=== PATIENT | male | born 1990 | race Two or more races ===

== ENCOUNTER 2021-12-07 11:35 | Emergency (ER) | payer MEDICAID, SELFPAY ==
[2021-12-07 12:21] VITALS: BP 125/87; PULSE 57; RESP 16; TEMP 36.6; O2SAT 97; BMI 29.0
--- NOTE | 2021-12-07 13:08 | ED.SKABFB ---
HPI - Skin/Abscess/Foreign Bdy General Chief complaint: Skin/Abscess/Foreign Body Stated complaint: lump on face Time Seen by Provider: 12/07/21 12:29 Source: patient Mode of arrival: ambulatory Limitations: no limitations History of Present Illness HPI narrative: 31-year-old male presents to the ER for evaluation of a lump on his right cheek for the last 11 years. He reports it has slowly been getting bigger and more bothersome. A friend told him yesterday if he let it go for too long he could get a brain infection and become blind in his right eye. Patient has not tried to drain or pop the lump. He denies any redness, tenderness or drainage. MD complaint: lesion Onset (ago): year(s) Location: face Severity: mild Severity scale (1-10): 3 Quality: aching Pain Consistency: intermittent Relieving factors: none Exacerbating factors: none Context: none Associated symptoms: denies other symptoms Treatments prior to arrival: none Related Data Allergies Allergy/AdvReac Type Severity Reaction Status Date / Time No Known Allergies Allergy Unverified 01/13/20 18:41 Review of Systems Review of Systems: Constitutional: No Fever, No Chills ENT/Mouth: No Swallowing Difficulty Eyes: No Eye Pain, No Swelling, No Redness Cardiovascular: No Chest Pain, No SOB Gastrointestinal: No Nausea, No Vomiting Skin: + Skin Lesions, No rash Psych: + Anxiety/Panic, No Depression Heme/Lymph: No Bruising, No Lymphadenopathy PMFSH Social History Social History Advance Directives: No Advance Directives Information Provided: No Physical Exam Vital Signs: Vital Signs: Last Vital Signs Temp 97.8 F 12/07/21 12:21 Pulse 57 12/07/21 12:21 Resp 16 12/07/21 12:21 BP 125/87 12/07/21 12:21 Pulse Ox 97 12/07/21 12:21 O2 Del Method 12/07/21 12:21 BMI result Body Mass Index 29.0 Appearance: Alert. Oriented X3. No acute distress. HEENT: On the right cheek there is a heel 1 cm mobile soft tissue mass with no overlying erythema, warmth, drainage. No fluctuance. CVS: Normal heart rate and rhythm. Pulses normal. No cervical lymphadenopathy Respiratory: No respiratory distress. Skin: Skin warm and dry. Normal skin color. Normal skin turgor. No rashes. Extremities: normal inspection and ROM x4 Neuro: Oriented X 3. Grossly normal, nonfocal Course Course Course Narrative: 31-year-old male presents to the ER for evaluation of a lump on his right cheek that has been there for the last 11 years, it has slowly been growing and becoming more bothersome to him. Examination is consistent with a non infected, uncomplicated cyst that is not need to be emergently drained or incised today. He should have evaluation by a wireless engineer for excision. This was discussed with the patient who agrees with plan. He is stable for discharge home, will give referral for Dermatology in [place]. He will follow-up with his PCP at the clinic as well. Critical Care Time Critical Care Time Critical Care Time: No Discharge Plan Discharge Clinical Impression: Epidermal cyst of face Patient Disposition: Home, Self-Care Instructions: Epidermal Inclusion Cysts (ED) Additional Instructions: Recommend referral to a wireless engineer for excision and removal of your cyst. Do not attempt to drain or pop the CIS, this can cause complications such as infection or increase in size. If you develop new or worsening symptoms call 911 or come back to the ER for further evaluation. Referrals: Cynthia Wood PA-C [Physician [facility]] - Discharge Date/Time: 12/07/21 13:20
== END 2021-12-07 13:20 | disposition home or self-care (01) ==
PROVIDERS: Emergency Provider Student in an Organized Health Care Education/Training Program
DX: L72.8 Other follicular cysts of the skin and subcutaneous tissue (principal)
CPT/HCPCS: 99283

== ENCOUNTER 2022-05-27 13:41 | Emergency (ER) | payer MEDICAID, SELFPAY ==
--- NOTE | 2022-05-27 13:55 | ED.SKABFB ---
HPI - Skin/Abscess/Foreign Bdy General Chief complaint: Skin/Abscess/Foreign Body Stated complaint: cyst on face Related Data Allergies Allergy/AdvReac Type Severity Reaction Status Date / Time No Known Allergies Allergy Unverified 05/27/22 13:55 [facility] Social History Social History Advance Directives: No Advance Directives Information Provided: No Physical Exam Vital Signs: Vital Signs: Last Vital Signs Temp 98.1 F 05/27/22 14:26 Pulse 79 05/27/22 14:26 Resp 16 05/27/22 14:26 BP 154/79 H 05/27/22 14:26 Pulse Ox 94 05/27/22 14:26 O2 Del Method 05/27/22 14:26 BMI result Body Mass Index 25.7 Course Course Course Narrative: This is rapid medical exam. deferred additional HPI, ROS, PE to primary provider. 32 yo male healthy here with right facial swelling with lump for years. [facility] and they referred him to a general surgeon but they have not received this. VSS. Discharge Plan Discharge Clinical Impression: Cellulitis, Abscess of skin or subcutaneous tissue Patient Disposition: Elopement Interventions: ED Discharge Assessment Last Done: 05/27/22 21:10 Discharge Date/Time: 05/27/22 21:26
[2022-05-27 13:56] VITALS: BP 154/79; PULSE 79; RESP 16; TEMP 36.7; O2SAT 94
[2022-05-27 14:26] VITALS: BP 154/79; PULSE 79; RESP 16; TEMP 36.7; O2SAT 94; BMI 25.7
== END 2022-05-27 21:26 | disposition left against medical advice (07) ==
PROVIDERS: Emergency Provider Student in an Organized Health Care Education/Training Program
DX: L72.9 Follicular cyst of the skin and subcutaneous tissue, unspecified (principal)
CPT/HCPCS: 99281; 99282

== ENCOUNTER 2024-09-05 04:40 | Emergency (ER) | payer MEDICAID, SELFPAY ==
--- NOTE | ~2024-09-05 | CT_ITS ---
CLINICAL HISTORY: abd pain CT abdomen and pelvis with contrast Comparison: None Findings: No consolidation or effusion. There are multiple bilateral nonobstructing renal calculi. There is no evidence of obstructive uropathy. The kidneys are otherwise unremarkable. The gallbladder in the rest of the solid organs are normal. No bowel obstruction, pneumoperitoneum, or pneumatosis. Pelvic contents unremarkable. Normal appendix. No acute fracture. IMPRESSION: Nephrolithiasis without obstructive uropathy. This document has been electronically signed by: Juan Jurado MD on 09/05/2024 10:16:06
[2024-09-05 04:43] VITALS: BP 120/81; PULSE 89; RESP 16; TEMP 36.9; O2SAT 98; BMI 30.1
[2024-09-05 05:08] LABS: MANUAL DIFF FLAG NO
[2024-09-05 05:10] LABS: Basophils Percent Auto 0.4 % (0-2); Eosinophils Absolute Auto 0.3 X10*3/uL (0.0-0.4); Eosinophils Percent Auto 2.7 % (0-4); Hematocrit 46.7 % (42.0-52.0); Imm Gran Abs Auto 0.05 X10*3/uL (0.00-0.03); Imm Gran Pct Auto 0.5 % (0.0-0.4); Lymphocytes Absolute Auto 2.1 X10*3/uL (1.2-4.9); Lymphocytes Percent Auto 19.6 % (20-40); Mean Corpuscular HGB Conc 36.4 g/dl (31.0-36.0); Mean Corpuscular Hemoglobin 30.2 pg (27.0-33.0); Mean Corpuscular Volume 83.1 fL (80.0-98.0); Mean Platelet Volume 10.1 fL (9.4-12.4); Monocytes Absolute Auto 0.7 X10*3/uL (0.1-1.2); Monocytes Percent Auto 6.9 % (2-11); Neutrophils Absolute Auto 7.6 x10*3/uL (2.0-8.3); Neutrophils Percent Auto 69.9 % (45-73); Platelet Count 250 X10*3/uL (160-400); Red Blood Count 5.62 X10*6/uL (4.60-5.80); Red Cell Distribution Width 12.7 % (11.0-16.0); White Blood Count 10.8 X10*3/uL (4.8-10.8)
[2024-09-05 05:26] LABS: Alanine Aminotransferase 43 U/L (0-40); Alkaline Phosphatase 75 U/L (39-117); Anion Gap 14 (12-20); Aspartate Amino Transferase 28 U/L (5-37); Bilirubin Total 0.4 mg/dL (0.0-1.0); Blood Urea Nitrogen 10 mg/dL (9-16); Calcium 9.1 mg/dL (8.4-10.2); Carbon Dioxide 26 mmol/L (22-29); Chloride 106 mmol/L (96-108); Creatinine Clr Calc Pharmacy 108.9; Estimated Glomerular Filt Rate > 60; Glucose Random 89 mg/dL (60-115); Lipase 19 U/L (8-78); Sodium 142 mmol/L (135-145)
--- OUTSIDE RECORDS SUMMARY | 2024-09-05 05:31 | XMS_ITS | Clinical Summary ---
Author Organization [facility] Address [address] [place] [id number] Care Team Providers Care Primary Care Md Name Role Phone Pcp, No Primary Care Provider Unavailabl e Allergies No known active allergies Medications guaiFENesin-dext romethorphan 100-10 mg/5 mL syrup Take 10 mL by mouth every 4 (four) hours as needed (cough). 120 mL 05/16/2024 Active acetaminophen (TYLENOL) 500 MG tablet Take 1 tablet (500 mg total) by mouth 4 times daily (every 6 hours) as needed for mild pain (pain). 20 tablet 05/16/2024 Active ibuprofen (MOTRIN) 600 MG tablet Take 1 tablet (600 mg total) by mouth 3 (three) times a day as needed for mild pain (pain). 20 tablet 05/16/2024 Active Social History Tobacco Use Types Packs/Day Years Used Date Smoking Tobacco: Never Assessed Sex and Gender Information Value Date Recorded Sex Assigned at Male 05/12/2024 6:48 PM EST Legal Sex Male 6:37 PM EST Gender Identity Male 05/12/2024 6:48 PM EST Sexual Orientation Choose not to disclose 2024 6:48 PM EST Last Filed Vital Signs Vital Sign Reading Time Taken Comments Blood Pressure 128/94 05/16/2024 9:06 AM EST Pulse 98 05/16/2024 9:06 AM EST Temperature 37 ??C (98.6 ??F) 05/16/2024 9:06 AM EST Respiratory Rate 18 05/16/2024 9:06 AM EST Oxygen Saturation 96% 05/16/2024 9:06 AM EST Inhaled Oxygen Concentration - - Weight - - Height - - Body Mass Index - - Plan of Treatment Health Maintenance Due Date Last Done Comments Hepatitis C Virus Screening 1991 HIV Screening 2004 DTaP/Tdap/Td Vaccines (1 - Tdap) 2010 Hepatitis B Vaccines (1 of 3 - 19+ 3-dose series) 2010 COVID-19 Vaccine ( - 2023-2 5 season) 2023 Influenza Vaccine 11/26/2024 HPV Vaccines Aged Out No longer eligi ble based on patient's age to complete this topic Pneumococcal Vaccine: Pediat gautam (0-5 Years) and At-Risk Patients (6 to 49 Years) Aged Out No longer eligible b ased on patient's age to complete this topic Insurance Care Teams Primary Care Md Relationship Specialty Start Date End Date Pcp, No PCP - General General Medicine 05/12/24
--- OUTSIDE RECORDS SUMMARY | 2024-09-05 05:31 | XMS_ITS | Encounter Summary ---
Author Organization [facility] Address [address] [place] [address] [address] [place] [address] Care Team Providers Care Executive Meeting Manager Name Role Phone Unavailable Primary Care Provider Unavailabl e Reason for Visit * Reason Onset Date Comments Appointment 06/28/2022 Encounter Details Date Type Department Care Team (Late st Contact Info) Description 06/28/2022 Telephone [facility] [address] [place] [address] Lucas Tadeo DMD [address] [place] [address] Appointment Social History Tobacco Use Types Packs/Day Years Used Date Smoking Tobacco: Former Cigarettes Smokeless Tobacco: Never Sex and Gender Information Value Date Recorded Sex Assigned at Male 02/25/2022 10:20 AM EDT Legal Sex Male 10:20 AM EDT Gender Identity Choose not to disclose 10:20 AM EDT Sexual Orientation Choose not to disclose 2021 10:20 AM EDT COVID-19 Exposure Response Date Recorded In the last 10 days, have yo u been in contact with someone who was confirmed or suspected to have Coronavirus/COVID-19? No / Unsure 06/12/2022 8:06 AM EST documented as of this encounter Miscellaneous Notes * Telephone Encounter - Odalys Gaxiola - 06/28/2022 2:47 PM EST Patient missed appt with Oral Surgeon and wants to reschedule DR documented in this encounter Plan of Treatment Not on file documented as of this encounter Visit Diagnoses Not on filedocumented in this encounter
[2024-09-05 05:47] LABS: Influenza A PCR NEGATIVE (Negative); Influenza B PCR NEGATIVE (Negative); Resp Syncy Virus RNA Qual PCR NEGATIVE (Negative); SARS COV2 PCR INHOUSE NEGATIVE (Negative)
[2024-09-05 06:40] VITALS: BP 111/71; PULSE 76; RESP 16; TEMP 36.9; O2SAT 95
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
[2024-09-05] MEDS: ondansetron HCL 4 MG/2 ML VIAL IVPUSH (07:53)
[2024-09-05] MEDS: 0.9 % Sodium Chloride 500 ML 999 ML IV (07:53)
[2024-09-05] MEDS: HYDROmorphone HCl 0.5 MG/0.5 ML SYRINGE IVPUSH (07:54)
[2024-09-05] MEDS: iohexoL 350 MG/ML 100 ML INFUS..BTL IV (09:15)
[2024-09-05 11:03] VITALS: BP 98/64; PULSE 72; RESP 18; TEMP 36.4; O2SAT 96
== END 2024-09-05 11:04 | disposition home or self-care (01) ==
PROVIDERS: Emergency Provider Emergency Medicine Emergency Medical Services
DX: K29.70 Gastritis, unspecified, without bleeding (principal); M79.10 Myalgia, unspecified site; M54.2 Cervicalgia; Z03.818 Encounter for observation for suspected exposure to other biological agents ruled out
CPT/HCPCS: 0241U; 74177; 80053; 83690; 85025; 96374; 96375; 99284; 99285; J1171; J2405; Q9967

== ENCOUNTER → 2024-09-05 08:55 | Outpatient (BNV) | payer MEDICAID, SELFPAY | PROVIDERS: Emergency Provider Emergency Medicine Emergency Medical Services; Visit Provider Radiology Diagnostic Radiology | DX: R10.84 Generalized abdominal pain (principal) | CPT/HCPCS: 74177 ==

== ENCOUNTER 2024-09-26 02:25 | Emergency (ER) | payer MEDICAID, SELFPAY ==
--- NOTE | ~2024-09-26 | XR_ITS ---
CLINICAL HISTORY: cough, fevers 2 views chest Comparison: None Findings: Cardiac and mediastinal contours are normal. Mild interstitial prominence with scattered peribronchial thickening. No focal consolidation. No effusion. No pneumothorax. No acute osseous finding. Impression: Mild interstitial prominence with scattered peribronchial thickening. No focal consolidation. This document has been electronically signed by: David Martinez MD on 09/26/2024 05:05:16
[2024-09-26 02:28] VITALS: BP 122/86; PULSE 96; RESP 19; TEMP 36.6; O2SAT 96; BMI 30.6
--- NOTE | 2024-09-26 02:38 | ED.URI ---
HPI - URI/Sore Throat General Chief Complaint: Upper Respiratory Symptoms Stated Complaint: cough,fever Time Seen by Provider: 09/26/24 02:32 Source: patient Mode of arrival: ambulatory Limitations: no limitations History of Present Illness ED Provider: dar rodriguez np HPI Narrative: Patient is a 34-year-old male presents emergency department for evaluation of nonproductive cough, sore throat, fevers at home with T-max 100.0 degrees. Symptom onset 4 days ago. Denies difficulty swallowing or inability to swallow. Tried a single dose of NyQuil 1 of these nights was able to sleep a little bit but otherwise has not done anything at home for conservative treatment. Denies any known sick contacts. Denies chills, headache, dizziness, neck pain, neck stiffness, chest pain, shortness of breath, difficulty breathing, nausea, vomiting, abdominal pain, numbness or tingling of the extremities, genitourinary symptoms. Related Data Previous Rx's ?Medication ?Instructions ?Recorded famotidine 20 mg tablet (Pepcid) 20 mg PO BID 5 days #10 tabs 09/05/24 guaifenesin 200 mg/5 mL oral liquid 400 mg (10 mL) PO Q6H PRN cough 09/26/24 #118 mL Allergies Allergy/AdvReac Type Severity Reaction Status Date / Time No Known Allergies Allergy Verified 09/26/24 02:30 Review of Systems Review of Systems: Yes all other systems are reviewed and are negative [facility] Past Medical History Attestation statement: The following information was validated with the patient. Source: old records reviewed Social History Social History Smoked in Last 30 Days: No Use of substances other than those prescribed or required for medical reasons: Yes Substance Use Type: Marijuana Advance Directives: No Advance Directives Information Provided: Yes Do you have a plan to hurt others: No Plan Physical Exam Vital Signs: Vital Signs: Last Vital Signs Temp 97.8 F 09/26/24 03:51 Pulse 96 09/26/24 03:51 Resp 19 09/26/24 03:51 BP 122/86 09/26/24 03:51 Pulse Ox 96 09/26/24 03:51 O2 Del Method Room Air 09/26/24 03:51 BMI result Body Mass Index 30.6 Appearance: Alert.?Oriented to person, place and time. No acute distress.?Normal affect. Eyes: Pupils equal, round and reactive to light.? ENT: TM normal bilaterally. Pharynx has been only erythematous. No tonsillar hypertrophy or exudates. Uvula is midline. No trismus. No drooling.?? Neck: Normal inspection.? Neck supple.??No cervical adenopathy CVS: Heart sounds normal. Normal heart rate and rhythm.? Pulses normal.?? Respiratory: No respiratory distress.? Lung sounds clear to auscultation bilaterally?? Abdomen: Soft and non-tender. Normoactive bowel sounds. Skin: Skin warm and dry.? Normal skin color.? ? Extremities: No lower extremity edema.? Neuro: Moves all extremities spontaneously. Sensation intact bilaterally. No motor deficits. Ambulates with normal steady gait. Medical Decision Making Medical Decision Making [facility] Narrative: Patient is a 34-year-old male with no reported past medical history presenting for evaluation of cough sore throat and fever as per HPI. COVID-19 /influenza/RSV testing negative. Group a strep testing negative. Examination not consistent with RPA/DIRECTOR PHARMACOLOGY. Tolerating oral intake. Chest x-ray shows no sign of pneumonia or pleural effusions. At this time history and physical exam not consistent with ACS/PE. Well-appearing, nontoxic, afebrile, no tachycardia or tachypnea/hypoxia. Speaking clear full sentences, ambulatory with steady gait. Discussed conservative treatment including rest, hydration, Tylenol/ibuprofen as needed for fever and body aches, saline nasal spray, humidifier, [id number] cold medication. Advised to follow-up with primary care provider as needed, discussed reasons to return back to the emergency department. All questions were answered. Patient discharged home in stable condition. Differential Diagnosis Differential Diagnoses: The differential diagnosis associated with the presentation includes ( See narrative above) Admission/Observation Consideration of admission/observation: Escalation of care including admission/observation considered ( see narrative above) Lab Data [facility] Lab Attestation statement: I reviewed the patient's lab results. ( see narrative above) Labs: Lab Results 09/26/24 Range/Units 02:54 Influenza Type A (PCR) NEGATIVE (Negative) Influenza Type B (PCR) NEGATIVE (Negative) RSV RNA Qual (PCR) NEGATIVE (Negative) SARS-CoV-2 RNA (RT-PCR) NEGATIVE (Negative) S. pyogenes GrpA CRICKET Negative (Negative) Independent Interpretation I performed an independent interpretation of an: Plain X-Ray (See narrative above) Radiology Impression Discussion of test interpretation with radiology: I have reviewed the radiologist's reading. External Record Review External record reviewed: Outpatient record Prescription Management I considered prescription management with: Pain Medication ( acetaminophen/ibuprofen) Discharge Plan Discharge Clinical Impression: Upper respiratory infection Patient Disposition: Home, Self-Care Instructions: Upper Respiratory Infection (ED) Additional Instructions: Be sure to rest, stay well hydrated drinking plenty of fluids, eat small frequent meals. Tylenol/ibuprofen can be used as needed for fever/pain. [id number] cold medications may be helpful as well for symptoms. Saline nasal spray, humidifier may be helpful for nasal congestion. You may return to the emergency department with any new or worsening symptoms or concerns. Follow-up with your primary care provider as needed. Should remain out of school/ work until symptoms have resolved and have been without a fever for 24 hours without the use of Tylenol or ibuprofen. Prescriptions: New guaifenesin 200 mg/5 mL liquid 400 mg PO Q6H PRN (Reason: cough) Qty: 118 0RF No Action famotidine [Pepcid] 20 mg tablet 20 mg PO BID 5 Days Qty: 10 0RF Referrals: Physician,Unknown J [Primary Care Provider] - Stand Alone Forms: Work/School Release Interventions: ED Discharge Assessment Last Done: 09/26/24 03:51 Discharge Date/Time: 09/26/24 03:57 Print Language: Macanese
[2024-09-26 02:52] VITALS: BP 122/86; PULSE 96; RESP 19; TEMP 36.6; O2SAT 96
[2024-09-26 03:11] LABS: IDNOW Serial# 6674DD1D
[2024-09-26 03:12] LABS: Strep A Nucleic Acid Negative (Negative)
--- OUTSIDE RECORDS SUMMARY | 2024-09-26 03:30 | XMS_ITS | Clinical Summary ---
Author Organization [facility] Address [address] [place] [id number] Care Team Providers Care Marine Services Technician Name Role Phone Pcp, No Primary Care [...] to complete this topic Insurance Care Teams Marine Services Technician Relationship Specialty Start Date End Date Pcp, No PCP - General General Medicine 05/12/24
[2024-09-26 03:36] LABS: Influenza A PCR NEGATIVE (Negative); Influenza B PCR NEGATIVE (Negative); Resp Syncy Virus RNA Qual PCR NEGATIVE (Negative); SARS COV2 PCR INHOUSE NEGATIVE (Negative)
[2024-09-26 03:51] VITALS: BP 122/86; PULSE 96; RESP 19; TEMP 36.6; O2SAT 96
== END 2024-09-26 03:57 | disposition home or self-care (01) ==
PROVIDERS: Emergency Provider Emergency Medicine
DX: J06.9 Acute upper respiratory infection, unspecified (principal); R05.9 Cough, unspecified; J02.9 Acute pharyngitis, unspecified; R50.9 Fever, unspecified
CPT/HCPCS: 0241U; 71046; 87651; 99283; 99284

== ENCOUNTER → 2024-09-26 02:32 | Outpatient (BNV) | payer MEDICAID, SELFPAY | PROVIDERS: Emergency Provider Emergency Medicine; Visit Provider Radiology Vascular & Interventional Radiology | DX: J84.89 Other specified interstitial pulmonary diseases (principal) | CPT/HCPCS: 71046 ==

== ENCOUNTER 2024-12-13 14:42 | Outpatient (REF) | payer MEDICAID, SELFPAY ==
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
--- OUTSIDE RECORDS SUMMARY | 2024-12-13 15:24 | XMS_ITS | Clinical Summary ---
Author Organization [facility] Address [address] [place] [address] Care Team Providers Care Underwriting Internship Name Role Phone Pcp, No Primary Care [...] mild pain (pain). 20 tablet 05/16/2024 Active Encounters Date Type Department Care Team Description 11/17/2024 12:56 AM EDT - 11/17/2024 7:37 AM EDT Emergency [facility] Emergency Department [address] [place] [address] Diarrhea (Primary Dx) Discharge Disposition: Left Against Medical Advice/ AMA 11/17/2024 Travel from Last 3 Months Social History Tobacco Use Types Packs/Day Years Used Date Smoking Tobacco: Never Assessed Sex and Gender Information Value Date Recorded Sex Assigned at Male 05/12/2024 6:48 PM EST Legal Sex Male 6:37 PM EST Gender Identity Male 05/12/2024 6:48 PM EST Sexual Orientation Choose not to disclose 2024 3:10 AM EDT Sexual Orientation Heterosexual (straight) 11/17 3:10 AM EDT Last Filed Vital Signs Vital Sign Reading Time Taken Comments Blood Pressure 133/79 11/17/2024 12:55 AM EDT Pulse 98 11/17/2024 12:55 AM EDT Temperature 35.9 C (96.6 F) 11/17/2024 12:55 AM EDT Respiratory Rate 17 11/17/2024 12:55 AM EDT Oxygen Saturation 98% 11/17/2024 12:55 AM EDT Inhaled Oxygen Concentration - - Weight - - Height - - Body Mass Index - - Plan of Treatment Health Maintenance Due Date Last Done Comments Hepatitis C Virus Screening 1991 HIV Screening 2004 DTaP/Tdap/Td Vaccines (1 - Tdap) 2010 Hepatitis B Vaccines (1 of 3 - 19+ 3-dose series) 2010 HPV Vaccines (1 - 3-dose SCD M series) 2018 COVID-19 Vaccine (2023-2 5 season) 2023 Influenza Vaccine 11/26/2024 Pneumococcal Vaccine: Pediat gautam (0-5 Years) and At-Risk Patients (6 to 49 Years) Aged Out No longer eligible b ased on patient's age to complete this topic Procedures Procedure Name Priority Date/Time Associated Diagnosis Comments LIPASE STAT 11/17/2024 5:59 AM EDT MAGNESIUM STAT 11/17/2024 5:59 AM EDT COMPREHENSIVE METABOLIC PANEL STAT 11/17/2024 5:59 AM EDT COMPLETE BLOOD COUNT, WITH DIFFERENTIAL STAT 11/17/2024 5:59 AM EDT from Last 3 Months Results * Complete Blood Count, with Differential (11/17/2024 5:59 AM EDT) White Blood Cell Count 9.6 4.0 - 11.0 Thou/uL 11/17/2024 6:35 AM EDT [facility] Platelet Count 197 150 - 450 Thou/uL 11/17/2024 6:35 AM EDT [facility] Hemoglobin 15.9 13.0 - 17.7 g/dL 11/17/2024 6:35 AM [facility] Hematocrit 45.8 39.0 - 54.0 % 11/17/2024 6:35 AM [facility] Red Blood Cell Count 5.33 4.50 - 6.20 Mil/uL 11/17/2024 6:35 AM [facility] MCV 86 80 - 100 fL 11/17/2024 6:35 AM [facility] MCH 29.8 26.0 - 34.0 pg 11/17/2024 6:35 AM [facility] MCHC 34.7 30.0 - 36.0 g/dL 11/17/2024 6:35 AM [facility] RDW 13.2 11.5 - 14.5 % 11/17/2024 6:35 AM [facility] MPV 10.1 7.5 - 12.5 fL 11/17/2024 6:35 AM [facility] Neutrophils Auto 58.4 % 11/18/19 6:35 AM [facility] Immature Granulocytes 0.2 % 11/17/2024 6:35 AM [facility] Lymphocytes Auto 28.9 % 11/18/19 6:35 AM [facility] Monocytes Auto 8.4 % 11/17/2024 6:35 AM [facility] Eosinophils Auto 3.7 % 11/18/19 6:35 AM [facility] Basophils Auto 0.4 % 11/17/2024 6:35 AM [facility] Abs Neutrophils Auto 5.59 2.00 - 7.50 Thou/uL 11/17/2024 6:35 AM [facility] Abs Immature Granulocytes 0.02 0.00 - 0.10 Thou/uL 11/17/2024 6:35 AM [facility] Abs Lymphocytes Auto 2.77 1.50 - 4.50 Thou/uL 11/17/2024 6:35 AM [facility] Abs Monocytes Auto 0.80 0.20 - 1.50 Thou/uL 11/17/2024 6:35 AM [facility] Abs Eosinophils Auto 0.35 0.00 - 0.70 Thou/uL 11/17/2024 6:35 AM [facility] Abs Basophils Auto 0.04 0.00 - 0.20 Thou/uL 11/17/2024 6:35 AM EDT [facility] Blood Blood specimen / Unknown 11/17/2024 5:59 AM EDT 11/17/2024 6:20 AM EDT us [facility] BLOOD ORDERABLES Final Resul t Performing Organization Address City/[facility] [place] [address], [address] [address] * Magnesium (11/17/2024 5:59 AM EDT) Magnesium 2.0 1.6 - 2.7 mg/dL 11/17/2024 6:46 AM EDT [facility] Blood Blood specimen / Unknown 11/17/2024 5:59 AM EDT 11/17/2024 6:20 AM EDT us E[facility] BLOOD ORDERABLES Final Resul t Performing Organization Address [facility] Co de Phone Number [address] [address], [address] [address] * Lipase (11/17/2024 5:59 AM EDT) Lipase 28 13 - 60 U/L 11/17/2024 6:46 AM EDT [facility] Blood Blood specimen / Unknown 11/17/2024 5:59 AM EDT 11/17/2024 6:20 AM EDT us E[facility] BLOOD ORDERABLES Final Resul t Performing Organization Address [facility] Co de Phone Number [address] [address], [address] [address] * (ABNORMAL) Comprehensive Metabolic Panel (11/17/2024 5:59 AM EDT) Glucose 63(L) 65 - 99 mg/dL 11/17/2024 6:46 AM [facility] Comment:Fasting: <100 mg/dL, Non-Fasting: <200 mg/dL (ADA 2004) Blood Urea Nitrogen (BUN) 10 8 - 21 mg/dL 11/17/2024 6:46 AM [facility] Creatinine 1.1 0.5 - 1.3 mg/dL 11/17/2024 6:46 AM [facility] eGFR >90 >59 11/17/2024 6:46 AM [facility] Comment:CKD-EPI (2020) in mL /min/1.73 sq meters. Sodium 144 136 - 145 mmol/L 11/17/2024 6:46 AM [facility] Potassium 4.0 3.4 - 5.3 mmol/L 11/17/2024 6:46 AM [facility] Chloride 104 98 - 107 mmol/L 11/17/2024 6:46 AM [facility] CO2 29 22 - 33 mmol/L 11/17/2024 6:46 AM [facility] Calcium 8.9 8.7 - 10.5 mg/dL 11/17/2024 6:46 AM [facility] Alkaline Phosphatase 81 45 - 128 U/L 11/17/2024 6:46 AM [facility] Aspartate Aminotrans (AST) 21 10 - 55 U/L 11/17/2024 6:46 AM [facility] Alanine Aminotrans (ALT) 27 10 - 55 U/L 11/17/2024 6:46 AM [facility] Bilirubin, Total 0.3 0.2 - 1.0 mg/dL 11/17/2024 6:46 AM [facility] Protein, Total 6.3 6.3 - 8.3 g/dL 11/17/2024 6:46 AM [facility] Albumin 3.7 3.5 - 5.0 g/dL 11/17/2024 6:46 AM [facility] BUN/Creatinine Ratio 9(L) 10.0 - 25.0 Ratio 11/17/2024 6:46 AM [facility] Globulin 2.6 1.5 - 3.9 g/dL 11/17/2024 6:46 AM [facility] Albumin/Globulin Ratio 1.4 1.0 - 3.0 Ratio 11/17/2024 6:46 AM EDT [facility] Anion Gap 11 7 - 17 11/17/2024 6:46 AM EDT [facility] Blood Blood specimen / Unknown 11/17/2024 5:59 AM EDT 11/17/2024 6:20 AM EDT [facility] BLOOD ORDERABLES Final Resul t [facility] [address] [place] [address], [address] [address] from Last [address] [place] [address] [place] [address] Care Teams Underwriting Internship Relationship Specialty Start Date End Date Pcp, No PCP - General General Medicine 05/12/24
== END 2024-12-13 14:43 | disposition home or self-care (01) ==
LOC: HO.HHCX 14:42
PROVIDERS: Visit Provider Nurse Practitioner Family
DX: R07.81 Pleurodynia (principal)
CPT/HCPCS: 71101

== ENCOUNTER → 2024-12-13 14:43 | Outpatient (BNV) | payer MEDICAID, SELFPAY | PROVIDERS: Visit Provider Radiology Diagnostic Radiology | DX: R07.89 Other chest pain (principal) | CPT/HCPCS: 71101 ==